=== PATIENT | female | born 1995 | race Caucasian/White ===

== ENCOUNTER 2017-08-13 06:59 | Emergency (ER) | payer OTHER ==
[~2017-08-13 06:59] MED LIST: A/B OTIC15 ML; GLYBURIDE5 MG PO; HYDRALAZINE HYD50 MG PO; HYDROCHLOROTHIA25 MG PO; LACTULOSE10 GM/152 PO; NOVI SQ; PROMETHAZI6.25 MG/5 PO
[2017-08-13 07:56] LABS: BASOPHIL % 0.3 % (0-2); PLATELET COUNT 216 x10^3mcL (130-400); RED CELL DISTRIBUTION WIDTH 12.9 % (11.5-14.5)
[2017-08-13 08:10] LABS: CALCIUM 8.4 mg/dL (8.5-10.1); CARBON DIOXIDE 28.4 mmol/L (21-32); CHLORIDE SERUM 105 mmol/L (98-107); CREATININE SERUM 0.6 mg/dL (0.6-1.0); GFR1 > 60 mL/min; GLUCOSE SERUM 91 mg/dL (74-106); POTASSIUM SERUM 3.5 mmol/L (3.5-5.1); SODIUM SERUM 140 mmol/L (136-145)
[2017-08-13 08:15] LABS: ALBUMIN 3.9 g/dL (3.4-5.0); ALKALINE PHOSPHATASE 72 U/L (46-116); ALT/SGPT 25 U/L (14-59); AMYLASE 53 U/L (25-115); AST/SGOT 16 U/L (15-37); BILIRUBIN TOTAL 0.48 mg/dL (0.20-1.00); LIPASE 135 IU/L (73-393); TOTAL PROTEIN, SERUM 7.6 g/dL (6.4-8.2)
[2017-08-13 10:31] VITALS: BP 108/70
== END 2017-08-13 10:31 | disposition home or self-care (01) ==
LOC: ED 06:59
PROVIDERS: Emergency Medicine
DX: E86.0 Dehydration (principal)
CPT/HCPCS: 83880; J2405; J7030

== ENCOUNTER 2018-09-24 17:52 | Emergency (ER) | payer OTHER ==
[~2018-09-24] VITALS: Ht 152.4 cm; Wt 61.7 kg
[2018-09-24 18:18] VITALS: Ht 152.4 cm; Wt 61.7 kg
[2018-09-24 21:23] VITALS: BP 112/74
== END 2018-09-24 21:23 | disposition home or self-care (01) ==
LOC: ED 17:52
DX: R51 Headache (principal); B34.9 Viral infection, unspecified; J45.909 Unspecified asthma, uncomplicated
CPT/HCPCS: J1885; J8597; Q0163

== ENCOUNTER 2018-11-16 22:00 | Emergency (ER) | payer OTHER ==
[~2018-11-16] VITALS: Ht 152.4 cm; Wt 60.9 kg
[2018-11-16 22:07] VITALS: Ht 152.4 cm; Wt 60.9 kg
[2018-11-17 00:12] VITALS: BP 114/80
== END 2018-11-17 00:12 | disposition home or self-care (01) ==
LOC: ED 22:00
DX: J02.9 Acute pharyngitis, unspecified (principal); R51 Headache; H92.01 Otalgia, right ear; J45.909 Unspecified asthma, uncomplicated
CPT/HCPCS: J1100; J1885

== ENCOUNTER 2020-02-09 19:57 | Emergency (ER) | payer OTHER ==
[~2020-02-09] VITALS: Ht 152.4 cm; Wt 56.7 kg
[2020-02-09 20:04] VITALS: Ht 152.4 cm; Wt 56.7 kg
[2020-02-09 20:49] LABS: BASOPHIL % 0.2 % (0-2); PLATELET COUNT 175 x10^3mcL (130-400); RED CELL DISTRIBUTION WIDTH 13.3 % (11.5-14.5)
[2020-02-09 20:58] LABS: CARBON DIOXIDE 28.3 mmol/L (21-32); CHLORIDE SERUM 99 mmol/L (98-107); CREATININE SERUM 0.8 mg/dL (0.6-1.0); GFR1 > 60 mL/min; GLUCOSE SERUM 110 mg/dL (74-106); POTASSIUM SERUM 3.8 mmol/L (3.5-5.1); SODIUM SERUM 135 mmol/L (136-145)
[2020-02-09 21:04] LABS: ALBUMIN 3.7 g/dL (3.4-5.0); ALKALINE PHOSPHATASE 125 U/L (46-116); ALT/SGPT 67 U/L (14-59); AST/SGOT 38 U/L (15-37); BILIRUBIN TOTAL 0.89 mg/dL (0.20-1.00); TOTAL PROTEIN, SERUM 7.7 g/dL (6.4-8.2)
[2020-02-09 22:28] VITALS: BP 103/54
== END 2020-02-09 22:28 | disposition home or self-care (01) ==
LOC: ED 19:57
PROVIDERS: Emergency Medicine
DX: J03.90 Acute tonsillitis, unspecified (principal); J45.909 Unspecified asthma, uncomplicated
CPT/HCPCS: 86308; J0696; J2930; J7030; J7060